=== PATIENT | male | born 1985 | race American Indian/Alaskan Native ===

== ENCOUNTER 2020-11-27 11:39 | Emergency (ER) | payer SELFPAY ==
[2020-11-27 12:23] VITALS: BP 170/107
--- NOTE | 2020-11-27 13:43 | Emergency Department Report ---
ED General Adult HPI - General Chief complaint: Extremity Problem,Nontraumatic Stated complaint: GOUT PAIN PUI?: No Time Seen by Provider: 11/27/20 12:50 Source: patient Mode of arrival: Ambulatory Limitations: No Limitations - History of Present Illness Initial comments: This is a 35-year-old male with a history of gout who presents to the ED complaining of gouty arthritis to his left index finger that began initially about a week ago. Patient states he has swelling and pain to the right index finger. Patient states that the swelling went down about a couple of days ago and yesterday the swelling returned and pain. Patient states he is not taking any medication for gout. Patient denies any fever, chills, insect bite. Patient states that flareup is localized to his right index finger and no other joint. - Related Data Allergies Allergy/AdvReac Type Severity Reaction Status Date / Time No Known Allergies Allergy Unverified 11/27/20 12:19 ED Review of Systems ROS: Stated complaint: GOUT PAIN Other details as noted in HPI Comment: All other systems reviewed and negative ED Past Medical Hx - Past Medical History Previous Medical History?: No - Surgical History Past Surgical History?: No ED Physical Exam - General Limitations: No Limitations General appearance: alert, in no apparent distress - Head Head exam: Present: atraumatic - Eye Eye exam: Present: normal appearance - ENT ENT exam: Present: normal exam - Neck Neck exam: Present: normal inspection, full ROM - Respiratory Respiratory exam: Present: normal lung sounds bilaterally - Extremities Exam Extremities exam: Present: full ROM, tenderness (To palpation of the right index finger, index finger warm and swollen.), normal capillary refill - Back Exam Back exam: Present: full ROM ED Course Vital Signs 11/27/20 12:22 Temperature 98.3 F Pulse Rate 73 Respiratory 20 Rate Blood Pressure 170/107 O2 Sat by Pulse 97 Oximetry ED Medical Decision Making - Medical Decision Making 35-year-old male presents with gouty arthritis of the left index finger. Patient received meds in the ED. Discussed with patient prescription of steroids and colchicine. Patient is in no acute distress. Discussed with patient follow-up with primary care physician. Discussed worsening symptoms return to ED. Critical care attestation.: If time is entered above; I have spent that time in minutes in the direct care of this critically ill patient, excluding procedure time. ED Disposition Clinical Impression: Gouty arthritis Disposition: [id number] TO HOME OR SELFCARE Is pt being admited?: No Does the pt Need Aspirin: No Condition: Stable Instructions: Low-Purine Eating Plan Additional Instructions: Make sure to follow up with the primary care physician as discussed. Take all your medications as you've been prescribed. If you have any worsening symptoms or develop new symptoms please return to ED immediately.
[2020-11-27] MEDS ORDERED: KETOROLAC 30 MG/1 ML INJ IM ONE (13:47)
[2020-11-27] MEDS ORDERED: predniSONE 20 MG TAB PO ONE (13:47)
[2020-11-27] MEDS ORDERED: COLCHICINE 0.6 MG TAB PO SCH (14:00)
== END 2020-11-27 14:36 | disposition home or self-care (01) ==
LOC: ED 11:39
DX: M10.9 Gout, unspecified (principal)
CPT/HCPCS: 96372; 99282; J1885; J7512

== ENCOUNTER 2022-04-01 22:40 | Emergency (ER) | payer SELFPAY ==
[2022-04-01 22:52] VITALS: BP 152/99
== END 2022-04-01 23:05 | disposition home or self-care (01) ==
LOC: ED 22:40
DX: I10 Essential (primary) hypertension (principal); Z53.21 Procedure and treatment not carried out due to patient leaving prior to being seen by health care provider